=== PATIENT | male | born 1985 | race Two or more races ===

== ENCOUNTER 2021-07-17 09:00 | Outpatient (CLI) | payer MEDICAID, OTHER | END 2021-07-17 23:59 | disposition home or self-care (01) | LOC: LAB 09:00 | PROVIDERS: ATTEND Specialist | DX: Z01.818 Encounter for other preprocedural examination (principal); Z20.822 Contact with and (suspected) exposure to COVID-19 | CPT/HCPCS: C9803; U0003 ==

== ENCOUNTER 2021-07-22 08:08 | Inpatient (IN) | payer MEDICAID, OTHER ==
[~2021-07-22] VITALS: Ht 167.6 cm; Wt 86.2 kg
[2021-07-22] MEDS ORDERED: MIDAZOLAM HCL 2 MG/2ML VIAL ONE ×2 (10:55)
[2021-07-22] MEDS ORDERED: KETOROLAC TROMETHAMINE INJ 30 MG/ML VIAL ONE (10:55)
[2021-07-22] MEDS ORDERED: HYDROMORPHONE INJ 2 MG/ML DISP.SYRIN ONE (10:55)
[2021-07-22] MEDS ORDERED: HYDROMORPHONE 1 MG/1 ML DISP.SYRIN ONE ×3 (12:21→13:13)
[2021-07-22] MEDS ORDERED: FENTANYL PF 100MCG/2ML AMPUL ONE (12:30)
[2021-07-22] MEDS ORDERED: HYDROCODONE/APAP 5/325MG TABLET ONE (13:10)
--- NOTE | 2021-07-22 14:00 | NUR ---
MS RN NOTE PATIENT ADMITTED FROM OR S/P LEFT ORIF R/T LEFT ANKLE FRACTURE. PATIENT ACCOMPANIED BY 2 NURSES TRANSPORTED ON A GURNEY. PATIENT TRANSFERRED TO BED WITH ASSISTANCE. COMFORT MEASURES PROVIDED. PATIENT IS ALERT AND ORIENTED X4. PATIENT WITH RIGHT AC IV ACCESS G18. WITH DRESSING ON RIGHT ELBOW COVERED WITH DRESSING, DRY AND INTACT. WITH BANDAGE ON LEFT LOWER LEG R/T PROCEDURE. PATIENT ABLE TO VERBALIZE NEEDS. VITAL SIGNS WNL, NOT IN DISTRESS. ON ROOM AIR WITH NO SIGNS OF RESPIRATORY DISTRESS. DR. BARBER NOTIFIED OF ADMISSION. SAFETY MEASURES ENSURED WITH BED AT LOWERST AND LOCKED POSITION. SIDE RAILS RAISED X 2. CALL LIGHT AND BEDSIDE TABLE WITHIN REACH AT ALL TIMES. WILL CONTINUE TO MONITOR PATIENT.
[2021-07-22] MEDS ORDERED: HYDR-3980 PO (14:08)
[2021-07-22] MEDS ORDERED: TRAM50TA2 PO (14:08)
--- NOTE | 2021-07-22 15:45 | NUR ---
MS RN NOTE DR. ISABEL NOTIFIED OF ADMISSION. WILL CONTINUE TO MONITOR PATIENT.
[2021-07-22 16:00] VITALS: BP 142/80
[2021-07-22] MEDS: HYDROCODONE/APAP 5/325MG TABLET PO PRN ×3 (16:16→22:41)
[2021-07-22] MEDS ORDERED: DEXAMETHASONE SOD PHOSPHATE 4 MG/ML VIAL IV ONE (16:16)
[2021-07-22] MEDS ORDERED: ONDANSETRON HCL/PF 4 MG/2 ML VIAL IVP ONE (16:16)
[2021-07-22] MEDS ORDERED: LIDOCAINE HCL/PF 2 % 5ML SDV 5 ML VIAL IV ONE (16:16)
[2021-07-22] MEDS ORDERED: PROPOFOL 200 MG/20 ML VIAL IV ONE (16:16)
[2021-07-22] MEDS ORDERED: CEFAZOLIN 1 GM VIAL IV ONE (16:16)
--- NOTE | 2021-07-22 19:00 | NUR ---
MS RN CLOSING NOTE PATIENT ON BED ALERT AND ORIENTED X 4 AND ABLE TO MAKE NEEDS KNOWN. PATIENT IS ON ROOM AIR WITH NO SIGNS OF RESPIRATORY DISTRESS WITH EVEN AND UNLABORED BREATHING. WITH CAST ON THE LEFT LOWER EXTREMITY R/T POST ORIF. WITH CAST ON RIGHT WRIST. BOTH CASTS WITH INTACT AND DRY WITH EXTREMITIES WITH GOOD CIRCULATION. OBSERVED PATIENT FOR PAIN MANAGEMENT. SAFETY PRECAUTIONS IN PLACE WITH BED IN LOWEST, LOCKED POSITION, BRAKES ON, SIDE RAILS UPx2. CALL LIGHT AND TABLE WITHIN REACH AT ALL TIMES. WILL ENDORSE TO NEXT SHIFT FOR CONTINUITY OF CARE
--- NOTE | 2021-07-22 19:45 | NUR ---
MS RN OPENING NOTES RECEIVED PT LAYING IN BED. PT IS A0x4. NO S/SX OF RESPIRATORY DISTRESS NOTED. PT IS ON RA AND TOLERATING WELL. NO SOB NOTED. IV ACCESS IN R AC #18 IS PATENT AND FLUSHING WELL, SALINE LOCKED. SAFETY PRECAUTIONS IN PLACE: BED IN LOWEST, LOCKED POSITION, BRAKES ON, SIDE RAILS UPx2. CALL LIGHT AND TABLE WITHIN REACH. WILL CONTINUE TO MONITOR.
[2021-07-22 20:10] VITALS: BP 138/90
--- NOTE | 2021-07-22 22:41 | NUR ---
PATIENT COMPLAINED OF PAIN 07/31. ADMINISTERED NORCO, 2 TABS PER MD ORDER.
[2021-07-23] MEDS: HYDROCODONE/APAP 5/325MG TABLET PO PRN ×3 (02:32→09:45)
--- NOTE | 2021-07-23 02:32 | NUR ---
PATIENT STATES PAIN IS 7/10. ADMINISTERED NORCO 1 TAB, PER MD ORDER.
--- NOTE | 2021-07-23 05:45 | NUR ---
PATIENT STATES PAIN IS 8/10. ADMINISTERED 2 NORCO TABS, PER MD ORDER.
--- NOTE | 2021-07-23 06:00 | NUR ---
MS RN CLOSING NOTES PT LAYING IN BED. PT IS A0x4. NO S/SX OF RESPIRATORY DISTRESS NOTED. PT IS ON RA AND TOLERATING WELL. NO SOB NOTED. IV ACCESS IN R AC #18 IS PATENT AND FLUSHING WELL, SALINE LOCKED. PATIENT STATED HE HAD PAIN ADMINISTERED NORCO. ALL NEEDS MET. PT KEPT CLEAN AND DRY. SAFETY PRECAUTIONS IN PLACE: BED IN LOWEST, LOCKED POSITION, BRAKES ON, SIDE RAILS UPx2. CALL LIGHT AND TABLE WITHIN REACH. WILL ENDORSE TO ONCOMING SHIFT.
--- NOTE | 2021-07-23 07:05 | NUR ---
MS RN OPENING NOTE RECEIVED PATIENT ON BED ASLEEP, BUT EASILY AROUSABLE. PATIENT IS ALERT AND ORIENTED X 4 AND ABLE TO MAKE NEEDS KNOWN. PATIENT IS ON ROOM AIR WITH NO SIGNS OF RESPIRATORY DISTRESS WITH EVEN AND UNLABORED BREATHING. WITH CAST ON THE LEFT LOWER EXTREMITY R/T POST ORIF. WITH CAST ON RIGHT WRIST. BOTH CASTS WITH INTACT AND DRY WITH EXTREMITIES WITH GOOD CIRCULATION. SAFETY PRECAUTIONS IN PLACE WITH BED IN LOWEST, LOCKED POSITION, BRAKES ON, SIDE RAILS UPx2. CALL LIGHT AND TABLE WITHIN REACH AT ALL TIMES. WILL CONTINUE TO MONITOR PATIENT.
[2021-07-23 08:00] VITALS: BP 140/83
--- NOTE | 2021-07-23 09:16 | NUR ---
WOUND CARE CONSULT: PT PRESENTS WITH RT ARM WOUND WITH CRUSTED AREAS, PRESENT ON ADMISSION. RECOMMEND SURGICAL CONSULT. DR ZAYAS NOTIFIED. IN AGREEMENT WITH PLAN OF CARE.
[2021-07-23] MEDS: oxyCODONE/APAP (5/325 MG) 1 UDTAB TABLET PO PRN ×4 (12:19→23:46)
[2021-07-23 16:00] VITALS: BP 126/85
--- NOTE | 2021-07-23 19:58 | NUR ---
MS RN OPENING NOTES PT RESTING IN BED, WITH EYES OPEN. PT IS AOx4. BREATHING IS EVEN AND UNLABORED. NO S/SX OF RESPIRATORY DISTRESS NOTED. PT IS ON RA AND TOLERATING WELL. NO SOB NOTED. IV ACCESS IN R AC #18 IS PATENT AND FLUSHING WELL, SALINE LOCKED. PATIENT STATED HE HAS NO PAIN AT THIS TIME. SAFETY PRECAUTIONS IN PLACE: BED IN LOWEST, LOCKED POSITION, BRAKES ON, SIDE RAILS UPx2. CALL LIGHT AND TABLE WITHIN REACH. WILL CONTINUE TO MONITOR.
[2021-07-23 20:00] VITALS: BP 125/93
--- NOTE | 2021-07-23 23:46 | NUR ---
PT STATED HE HAD 7/10 PAIN. ADMINISTERED PERCOCET PER MD ORDER
--- NOTE | 2021-07-24 06:02 | NUR ---
MS RN CLOSING NOTES PT SLEEPING IN BED, AWAKENS TO VERBAL STIMULI. PT IS AOx4. BREATHING IS EVEN AND UNLABORED. NO S/SX OF RESPIRATORY DISTRESS NOTED. PT IS ON RA AND TOLERATING WELL. NO SOB NOTED. IV ACCESS IN R AC #18 IS PATENT AND FLUSHING WELL, SALINE LOCKED. TREATED PATIENT'S PAIN ONCE DURING SHIFT. ALL NEEDS MET. PT KEPT CLEAN AND DRY. SAFETY PRECAUTIONS IN PLACE: BED IN LOWEST, LOCKED POSITION, BRAKES ON, SIDE RAILS UPx2. CALL LIGHT AND TABLE WITHIN REACH. WILL ENDORSE TO ONCOMING SHIFT.
[2021-07-24] MEDS: oxyCODONE/APAP (5/325 MG) 1 UDTAB TABLET PO PRN ×2 (06:30→11:14)
--- NOTE | 2021-07-24 06:30 | NUR ---
PT STATES PAIN IS 9/10. ADMINISTERED TWO PERCOCET TABLETS PER MD ORDER.
[2021-07-24 08:11] VITALS: BP 135/82
--- NOTE | 2021-07-24 08:30 | NUR ---
MS RN NOTE PATIENT SEEN BY DR. ISABEL WITH ORDERS FOR DISCHARGE ONCE SEEN BY PT. PATIENT HEALTH TEACHING DONE REGARDING DISCHARGE AND DISCHARGE INSTRUCTIONS. VERBALIZED UNDERSTANDING AND APPRECIATION. IV ACCESS REMOVED ORDERED, TOLERATED WELL. WILL WAIT FOR PT AND FOR PICK-UP. WILL CONTINUE TO MONITOR PATIENT.
--- NOTE | 2021-07-24 10:00 | NUR ---
MS RN NOTE PATIETN SEEN BY PT EVALUATION AND TREATMENT DONE AND TOLERATED WELL. NOT IN DISTRESS. AWATING PRECINCT [employer] BY . WILL CONTINUE TO MONITOR PATIENT.
--- NOTE | 2021-07-24 13:00 | NUR ---
MS RN NOTE PATIENT DISCHARGED ORDERED. PATIENT ACCOMPANIED BY NURSE TO LOBBY VIA WHEELCHAIR. IN STABLE CONDITION. ENDORSED ACCORDINGLY.
== END 2021-07-24 13:15 | disposition home or self-care (01) | DRG 313 ==
LOC: DS 08:08 → MED 14:04
PROVIDERS: ADMIT Internal Medicine; ATTEND Internal Medicine
PROC: 0QSH04Z Reposition Left Tibia with Internal Fixation Device, Open Approach (ICD-10-PCS; principal; 2021-07-22)
PROC: 0QSK0ZZ Reposition Left Fibula, Open Approach (ICD-10-PCS; 2021-07-22)
DX: S82.842A Displaced bimalleolar fracture of left lower leg, initial encounter for closed fracture (principal); Z20.822 Contact with and (suspected) exposure to COVID-19; V89.2XXA Person injured in unspecified motor-vehicle accident, traffic, initial encounter; Y92.9 Unspecified place or not applicable
CPT/HCPCS: 87081-TC; 97116-TC; 97530-TC; A6253; A6402; C1713; G0378; J0690; J1100; J1170; J1885; J2250; J2405; J2704; J3010; J3490; J7030; J7120